=== PATIENT | male | born 1975 | race Caucasian/White ===

== ENCOUNTER → 2019-09-14 08:28 | Outpatient (CLI) | payer OTHER, SELFPAY ==
--- NOTE | 2019-09-14 | DI.MRI.S_ITS ---
PROCEDURE: MR ANKLE LT WO CON INDICATIONS: pain in left ankle TECHNIQUE: Noncontrast sagittal T1 spin echo and T2 fast spin echo with fat saturation, axial proton density fast spin echo and T2 fast spin echo with fat saturation, coronal T1 spin echo and T2 fast spin echo with fat saturation through the ankle/hindfoot. COMPARISON: None. FINDINGS: Image quality: Excellent. Bones and joints: No bone marrow contusions or fractures. No hindfoot coalitions. Prominent medial talar dome osteochondral defect with subchondral cystic appearance and surrounding marrow edema. No definite in situ fragment is identified Tibiotalar joint effusion. Medial structures: The posterior tibialis, flexor digitorum longus, and flexor hallucis longus tendons are intact. Minimal posterior tibial tenosynovitis. Incidental unfused os navicular The posterior tibial neurovascular bundle appears normal within the tarsal tunnel, without extrinsic mass effect. The deep layer (anterior and posterior tibiotalar ligaments) and superficial layer (tibionavicular, tibiospring, and tibiocalcaneal ligaments) of the deltoid ligament appear normal. The spring ligament components (superomedial calcaneonavicular, medioplantar oblique calcaneonavicular, and inferoplantar longitudinal ligaments) are intact. Lateral structures: The anterior talofibular, calcaneofibular, and posterior talofibular ligaments appear intact. More superiorly, the anterior and posterior tibiofibular ligaments appear intact, as is the intermalleolar ligament. The tibiofibular syndesmosis is normal in width at 2 mm or less. The peroneus longus and brevis tendons demonstrate normal location and morphology. Adjacent bony peroneal tubercle and retrotrochlear prominence are normal in size. The sinus tarsi demonstrates normal fatty signal, without edema, fibrosis, or cyst formation. Visualized sinus tarsi components (cervical ligament, interosseous talocalcaneal ligament, roots of the inferior extensor retinaculum) appear normal. The calcaneonavicular and calcaneocuboid components of the bifurcate ligament appear intact. The dorsal calcaneocuboid ligament appears intact. Anterior structures: The tibialis anterior, extensor hallucis longus, and extensor digitorum longus tendons appear intact. The dorsal talonavicular ligament appears intact. Posterior and plantar structures: Achilles tendon is intact, however there is adjacent soft tissue edema at the insertion for example image 12 series 6 raises the possibility of low-grade insertional tendinopathy Minimal medial band plantar fasciitis, technically age-indeterminate IMPRESSION: Prominent medial talar dome subchondral cystic change and adjacent marrow edema which could be related to osteoarthritis versus osteochondral defect. No definite in situ fragment seen. Mild insertional Achilles tendinopathy. Minimal age indeterminate medial band plantar fasciitis Mild posterior tibialis tenosynovitis Dictated by: Jj Seay M.D. on 09/16/2019 at 9:26 Approved by: Jj Seay M.D. on 09/16/2019 at 9:36
== END ==
PROVIDERS: Visit Provider General Practice
DX: M79.672 Pain in left foot (principal); M65.872 Other synovitis and tenosynovitis, left ankle and foot
CPT/HCPCS: 73721

== ENCOUNTER → 2020-01-14 15:36 | Outpatient (CLI) | payer OTHER, SELFPAY ==
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
== END ==
PROVIDERS: Referring Provider Physician Assistant; Visit Provider Physician Assistant
DX: I51.9 Heart disease, unspecified (principal); T75.0 Effects of lightning
CPT/HCPCS: 93306

== ENCOUNTER → 2020-03-18 09:09 | Outpatient (CLI) | payer OTHER, SELFPAY ==
[2020-03-19 07:43] LABS: COVID19 Sendout Not Detected (Not Detect)
== END ==
PROVIDERS: Visit Provider Registered Nurse
DX: Z11.59 Encounter for screening for other viral diseases (principal)
CPT/HCPCS: 87635

== ENCOUNTER 2020-03-20 07:27 | Day surgery (SDC) | payer OTHER, SELFPAY ==
[2020-03-18 13:37] VITALS: BMI 24.5
[2020-03-20] VITALS (10 sets, daily range): BP systolic 97–123; BP diastolic 59–87; PULSE 69–82; RESP 11–20; TEMP 36.2–37; O2SAT 94–98; BMI 23.7
--- NOTE | 2020-03-20 | DI.RAD.S_ITS ---
PROCEDURE: XR ANKLE LT 2V INDICATIONS: ARTHROSCOPY ANKLE W/ DEBRIDEMENT TECHNIQUE: 3 views of the ankle were acquired. COMPARISON: [facility] [place] Gant, CR, XR ANKLE 3 VIEWS WEIGHT BEARING LEFT, 03/02/2020, 8:35. FINDINGS: Spot fluoroscopic images demonstrating probe with the tip projecting at the medial talar dome. Dictated by: Jj Seay M.D. on 03/20/2020 at 13:42 Approved by: Jj Seay M.D. on 03/20/2020 at 13:43
[2020-03-20] MEDS: LACTATED RINGERS 1,000 ML 42 ML IV ×2 (08:37→11:12)
--- NOTE | 2020-03-20 09:31 | PM.PREOP ---
Pre-operative Note COVID-19 COVID-19 status: Negative Interval Note History & Physical reviewed/Exam performed by Physician: Yes Changes to H&P: No
[2020-03-20] MEDS: CEFAZOLIN 2 GM/100 ML FROZ.PIGGY IV (09:58)
--- NOTE | 2020-03-20 10:34 | SUR.OPER ---
Supine on padded OR bed, head on pillow, arms secured on padded arm boards at <90 degrees abduction, legs uncrossed, safety belt secured across upper thighs, [place] bumps placed by to Left hip and under left leg, tape over blanket over lower right leg.
[2020-03-20] MEDS: BUPIVACAINE 0.25% W/ EPI 30 ML VIAL INJ (10:54)
[2020-03-20] MEDS: HYDROMORPHONE 2 MG INJ IV (12:11)
[2020-03-20] MEDS: ONDANSETRON 4 MG/2 ML INJ IV (12:14)
[2020-03-20] MEDS: ACETAMINOPHEN 325 MG TABLET 650 MG PO (12:17)
--- NOTE | 2020-03-20 12:21 | P.OP_ITS ---
Operative Date/Time/Diagnoses Date of procedure: 03/20/20 Time of procedure: 10:30 Pre-op diagnosis: Stress fracture, left foot --left talus Osteochondral defect left talus Post-op diagnosis: same Procedure & Clinicians Procedure: Arthroscopy ankle limited debridement left CPT code 86991 Open treatment talus fracture left CPT code 03910 Same procedure as scheduled: Yes Indications: Patient is a 44-year-old male with 1/2 years of left ankle pain, medial. He has had extensive conservative treatment with physical therapy over 3 months. He has a cystic OCL at the medial talar dome with extensive medial talar bone marrow edema. Joint spaces are otherwise well maintained. He has been indicated for treatment of his talar OCL with arthroscopic and debridement as well as treatment of the talar chronic stress reaction with bone substitute cement fixation. The risks and benefits of the procedure have been discussed with the patient even opportunity to ask questions. The risks of surgery include but are not limited to infection, malunion, nonunion, persistence of pain, damage to nerves and blood vessels, posttraumatic arthritis, DVT, PE, cardiopulmonary complications and . The patient expressed a thorough understanding of the risks and benefits of surgery and has elected to proceed. Consent was signed in the office. Surgeon: Alicia Gallagher Click Yes if Unassisted: Yes Anesthesia Type: General and Local Operative Notes Findings: Medial talar OCL with cartilage softening. Moderate anterior synovitis within the tibiotalar joint. Cystic medial talar lesion on fluoroscop y. Medial talar OCL was debrided back to stable cartilage border. The cystic OCL and medial talar stress reaction was fixed with 1 cc of Lita Accu fill Closure Type: primary Specimen(s): none sent Estimated Blood Loss (mL): 2 Blood products transfused: none Tourniquet time (min): 74 Procedure in detail: Patient was seen in the preoperative area the site of surgery was marked informed consent confirmed. The patient was then brought back to operative by the anesthesia team position the supine position. All bony prominences were well padded. A well-padded thigh tourniquet was placed. General anesthetic was administered. Left lower extremities prepped and draped in the standard sterile fashion. A formal time-out procedure was performed confirming the patient's side and site of surgery and administration of appropri ate preoperative antibiotics and presence of informed consent. All were in agreement. Attention turned to the left lower extremity the Esmarch bandage was used for exsanguination the tourniquet elevated left side for 250 mm of mercury for 74 minutes. Ankle anatomic markers were marked out on the leg and using the standard anterior medial portal 15 cc of sterile saline was injected for joint insuf flation. Next using the standard neck and spread technique the anterior medial portal was established the trocar and the camera were inserted. Then under direct visualization the anterior lateral port hole was made with care taken to avoid the superficial peroneal nerve branch. This was also completed using a crissy and spread technique. Once the portals were established anterior arthroscopy took place which demonstrated anterior synovitis and with plantar flexion were able to see the talar medial oCl with softened cartilage intact in the area of the lesion. Of note at this time the inner 2s aspect of the small shaver had disengaged from the shaver and loose in the joint this was immediately identified and a grasper used to retrieve this and remove it from the joint. A new 2.0 shaver was obtained. Thorough arthroscopic examination of the tibiotalar joint demonstrated no remaining fragments. Next the instruments were removed and the C-arm was brought in and the starting point for the talar stress fracture fixation was obtained using AP and lateral images at the intersection of these points laterally a small stab incision was made and the trocar for the 11 gauge and portal Accu fill trocar was placed down to the bone at the lateral talus this was advanced across the talus to the cystic lesion. This was confirmed on AP and lateral imaging. Once in appropriate position 0.5 cc of Accu fill was injected. A there was a small blush indicating intra- articular penetration of a small amount of cement and the arthroscopic instruments were replaced and the joint was irrigated and shaver run to remove this. Once this 1st half was hardened the trocar was pulled back about 5 mm and another 0.5 cc of active fill was injected demonstrating good darkening in the area of the lesion. At this point the arthroscopic instruments were once again replaced and the joint was irrigated to make sure there was no extravasation of cement. Once this was completed and the cement was hard the trocar was removed. Attention was turned back to the arthroscopic procedure and the softened unstable cartilage over the medial talar dome OCL was then debrided using combination of the shaver and ring curette back to a stable border. Final thorough irrigation of the joint was completed then the instruments removed and the portals closed with 3 O nylon suture. The focal for the bone cement procedure was also closed with a single nylon suture. Tourniquet was released hemostasis achieved. The joint was injected then with 15 cc of 0.25% Marcaine with epinephrine for local anesthetic. Sterile dressing with Xeroform gauze Webril and Dylan wrap and temporary posterior splint were placed and the patient was woken from anesthesia and taken to recovery room in good condition. Complications: other (The small 2.0 shaver was noted to have the inner toothed Piece disengaged from the shaver immediately after this was placed into the joint this was identified and removed with the grasper. No pieces remained ) Post-operative Condition: stable Disposition: PACU Plan for aftercare: Patient may change into his boot once he receives it. He will be weight bear as tolerated but was instructed to rely on crutches for the 1st 1-2 weeks as needed for pain. Follow up in 2 weeks. Will have [place] and Toradol for pain control.
[2020-03-20] MEDS: HYDROCODONE/ACET 5/325 TABLET 1 TAB PO (12:34)
== END 2020-03-20 13:17 | disposition home or self-care (01) ==
PROVIDERS: Referring Provider Orthopaedic Surgery Foot and Ankle Surgery; Visit Provider Orthopaedic Surgery Foot and Ankle Surgery
PROC: (CPT 28445; principal; 2020-03-20 09:15)
DX: M84.375A Stress fracture, left foot, initial encounter for fracture (principal); M89.9 Disorder of bone, unspecified; M95.8 Other specified acquired deformities of musculoskeletal system; F17.210 Nicotine dependence, cigarettes, uncomplicated
CPT/HCPCS: 28445; 29897; 73600; 76000; J0690; J1100; J1170; J2405; J3010